=== PATIENT | female | born 1985 | race Caucasian/White ===

== ENCOUNTER 2024-11-25 16:59 | Emergency (ER) | payer OTHER ==
[~2024-11-25] VITALS: Ht 152.4 cm; Wt 46.3 kg
== END 2024-11-25 19:44 | disposition home or self-care (01) ==
LOC: ED 16:59
DX: S96.912A Strain of unspecified muscle and tendon at ankle and foot level, left foot, initial encounter (principal); Z98.890 Other specified postprocedural states; W06.XXXA Fall from bed, initial encounter; Y93.89 Activity, other specified; Y92.89 Other specified places as the place of occurrence of the external cause; Y99.8 Other external cause status